=== PATIENT | male | born 1980 | race Hispanic/Latino ===

== ENCOUNTER 2018-10-19 13:51 | Inpatient (IN) | payer OTHER ==
[2018-10-19] MEDS ORDERED: Vancomycin 1gm in NS 250ml 1 GM/250 ML BAG IVPB STA (15:31)
[2018-10-19 15:33] LABS: BASO # 0.02 K/mm3 (0.0-2.0); BASO % 0.2 % (0.0-3.0); EOS # 0.1 (0.0-0.7); EOS % 0.9 % (1.5-5.0); HEMOGLOBIN 15.7 g/dL (14.0-18.0); LYMPH # 1.8 (1.2-3.4); LYMPH % 17.1 % (22.0-35.0); MEAN CELL VOLUME 93.6 fl (80.0-105.0); MEAN CORPUSCULAR HEMOGLOBIN 31.2 pg (25.0-35.0); MEAN CORPUSCULAR HGB CONC 33.3 g/dl (31.0-37.0); MEAN PLATELET VOLUME 10.2 fl (7.0-11.0); MONO # 0.7 (0.1-0.6); MONO % 6.5 % (1.0-6.0); RBC 5.03 10^6/uL (3.5-6.1); RED CELL DISTRIBUTION WIDTH 13.7 % (11.5-14.5); WHITE BLOOD COUNT 10.5 10^3/uL (4.5-11.0)
[2018-10-19 15:43] LABS: ALB/GLOB RATIO 0.9 (1.1-1.8); ALBUMIN 4.2 g/dL (3.0-4.8); ALT/SGPT 36 U/L (7-56); AST/SGOT 42 U/L (17-59); BLOOD UREA NITROGEN 14 mg/dL (7-21); CALCIUM 9.5 mg/dL (8.4-10.5); GFR NON-AFRICAN AMERICAN > 60
[2018-10-19 16:23] LABS: INR 3.7; PROTHROMBIN TIME 41.1 SECONDS (9.4-12.5)
[2018-10-19] MEDS ORDERED: Pantoprazole 40 mg EC Tab PO STA (20:48)
[2018-10-19 22:00] LABS: INR 3.88; PROTHROMBIN TIME 43.1 SECONDS (9.4-12.5)
[2018-10-19 22:47] VITALS: BMI 50.8
[2018-10-20 06:53] VITALS: RESP 18; TEMP 98; O2SAT 99
--- NOTE | 2018-10-20 10:03 | CT ---
Date of service: 10/20/2018 PROCEDURE: Radiographs of the left tibia and fibula. HISTORY: r/o osteo COMPARISON: None available. TECHNIQUE: CT scan of the left calf. FINDINGS: BONES: No fracture or destructive lesion. JOINT SPACES: Unremarkable. OTHER FINDINGS: Extensive superficial varicosities IMPRESSION: Extensive superficial varicosities. No gross evidence of osteomyelitis.
--- NOTE | 2018-10-20 11:36 | HP ---
DATE OF EXAM: 10/20/2018 HISTORY OF PRESENT ILLNESS: The patient is a 37-year-old white male with history of morbid obesity, chronic stasis dermatitis, chronic DVTs of both lower extremities. The patient is on anticoagulation for many many years. He has had chronic stasis ulcerations on both lower extremities over many years, but recently had some cellulitic episode of the left lower extremity, which was treated with few antibiotics. The patient has some resolution, however, continued to have severe pain and worsening purulent discharge from the left lower extremity with pain and low-grade fever. The patient states that this has been going on for the last two to three weeks. He has no travel history. He is nonsmoker and nondrinker. He has history of morbid obesity and he has been on anticoagulation, because of peripheral vascular disease and DVTs in the past. The patient also had history of sleep apnea. REVIEW OF SYSTEMS: MUSCULOSKELETAL: Positive for pain in the left lower extremity, discharge and discoloration of both lower extremities. CARDIAC: Denies chest pain, palpitations or shortness of breath. NEUROLOGICAL: Negative for syncope, nausea, vomiting and dizziness. GASTROINTESTINAL: Negative for diarrhea. GENITOURINARY: Negative for dysuria, frequency, or urgency. PHYSICAL EXAMINATION: GENERAL: Shows a well-developed, morbidly obese white male with discoloration, stasis dermatitis and open wounds of the left lower extremity and stasis dermatitic changes of the right lower extremity. There is mild edema 1 to 2+ bilaterally. CHEST: Clear to auscultation and percussion. HEART: . ABDOMEN: Obese, but benign. NEUROLOGICAL: Sensation grossly intact. IMPRESSION: Stasis dermatitis, stasis ulcer of lower extremity, particularly recent worsening of the cellulitis of the left lower extremity with pain and swelling, rule out osteomyelitis. Jun Hayes MD
[2018-10-20 19:25] LABS: ALBUMIN (PEP) 3.4 g/dL (3.8-4.8); ALPHA-1-GLOBULIN (PEP) 0.3 g/dL (0.2-0.3)
[2018-10-21 09:47] VITALS: BP 109/72; PULSE 73
--- NOTE | 2018-10-21 22:57 | DS ---
HISTORY OF PRESENT ILLNESS: A 37-year-old white male with history of chronic lymphedema and swelling in both lower extremities, admitted to the hospital with acute cellulitis of the left lower extremity and marked swelling. The patient was diuresed in the hospital and was treated with IV antibiotics. He became afebrile. Vital signs are stable. He has had no further complications. Legs are dry. The wounds have closed. There is less edematous. He is afebrile. He will discharged home on p.o. antibiotics and continue his diuretics and weight loss. FINAL DISCHARGE DIAGNOSES: Chronic stasis dermatitis and stasis ulcerations of left lower extremity with cellulitis. Jun Hayes MD
== END 2018-10-21 17:15 | disposition home or self-care (01) | DRG 603 ==
LOC: ED 13:51 → ERH 16:17 → 3RSO 19:09
PROVIDERS: ADMIT Internal Medicine; ATTEND Internal Medicine
DX: L03.116 Cellulitis of left lower limb (principal); L97.929 Non-pressure chronic ulcer of unspecified part of left lower leg with unspecified severity; L97.919 Non-pressure chronic ulcer of unspecified part of right lower leg with unspecified severity; Z68.43 Body mass index [BMI] 50.0-59.9, adult; I82.503 Chronic embolism and thrombosis of unspecified deep veins of lower extremity, bilateral; I87.2 Venous insufficiency (chronic) (peripheral); I73.9 Peripheral vascular disease, unspecified; E66.01 Morbid (severe) obesity due to excess calories; G47.30 Sleep apnea, unspecified; Z79.01 Long term (current) use of anticoagulants